=== PATIENT | male | born 1970 | race Two or more races ===

== ENCOUNTER 2019-05-27 18:10 | Emergency (ER) | payer OTHER ==
[~2019-05-27] VITALS: Ht 170.2 cm; Wt 70.4 kg
[2019-05-27 18:47] VITALS: BP 147/97
--- NOTE | 2019-05-27 18:57 | NUR ---
PT HERE W/ BOSS AND NEPHEW (TRANSLATING). PT C/O PAIN TO LATERAL RT ANKLE. IBUPROFREN ABOUT 1600 TODAY. ABLE TO MOVE TOES & ANKLE W/OUT DIFFICULTY. SWELLING TO LATERAL ANKLE.
--- NOTE | 2019-05-27 20:42 | NUR ---
PAINTING MANAGER BS FOR SPLINT APPLICATION.
== END 2019-05-27 21:03 | disposition home or self-care (01) ==
LOC: ED 20:45
DX: S82.64XA Nondisplaced fracture of lateral malleolus of right fibula, initial encounter for closed fracture (principal); F17.200 Nicotine dependence, unspecified, uncomplicated; W18.30XA Fall on same level, unspecified, initial encounter; Y93.89 Activity, other specified; Y92.69 Other specified industrial and construction area as the place of occurrence of the external cause; Y99.0 Civilian activity done for income or pay
CPT/HCPCS: 29515; 99283